=== PATIENT | male | born 1965 | race Caucasian/White ===

== ENCOUNTER 2018-11-09 13:43 | Emergency (ER) | payer MEDICAID, OTHER ==
[~2018-11-09] VITALS: Ht 167.6 cm; Wt 68.2 kg
[~2018-11-09 13:43] MED LIST: AMOX1TAB10 PO; BENA40TA56 PO; FAMO-96 PO; HYDR25TA6 PO; PRAV40TA76 PO
[2018-11-09 14:08] VITALS: Ht 167.6 cm; Wt 68.2 kg
--- NOTE | 2018-11-09 16:11 | ERD ---
ER Documentation Chief Complaint Chief Complaint AP X 5 DAYS HPI The patient is a 53-year-old male, presenting to the ER because of upper abdominal pain intermittently for the last 5 days, worse with eating, denies similar symptoms previously, denies fever, chills, neck pain, chest pain, vomiting, dizzy, diarrhea. He does not smoke, drink Past medical history: Hypertension, dyslipidemia Past surgical history: Bilateral inguinal herniorrhaphy ROS All systems reviewed and are negative except as per history of present illness. Medications Home Meds Active Scripts Pantoprazole* (Protonix*) 40 Mg Tablet.dr, 40 MG PO DAILY, #20 TAB Prov:DAJA YODER MD 11/09/18 Famotidine* (Pepcid*) 20 Mg Tablet, 20 MG PO BID, #20 TAB Prov:LELA JOHNSON [employer] 09/24/16 Amoxicillin/Potassium Clav (Amox-Clav 875-125 mg Tablet) 875-125 mg Tab, 1 TAB PO BID, #20 TAB Prov:LELA JOHNSON NP 09/24/16 Reported Medications Benazepril Hcl* (Benazepril Hcl*) 40 Mg Tablet, 40 MG PO QHS, #30 TAB 09/22/16 Hydrochlorothiazide* (Hydrochlorothiazide*) 25 Mg Tab, 25 MG PO DAILY, #30 TAB 09/22/16 Pravastatin Sodium* (Pravastatin Sodium*) 40 Mg Tablet, 40 MG PO HS, TAB 09/22/16 Allergies Allergies: Coded Allergies: No Known Allergy (Unverified , 09/21/16) PMhx/Soc History of Surgery: Yes (HERNIA REPAIR 2000) Anesthesia Reaction: No Hx Neurological Disorder: No Hx Respiratory Disorders: No Hx Cardiac Disorders: Yes (HTN, HIGH CHOLESTEROL) Hx Psychiatric Problems: No Hx Miscellaneous Medical Probl: No Hx Alcohol Use: No Hx Substance Use: No Hx Tobacco Use: No Physical Exam Vitals Vital Signs Date Temp Pulse Resp B/P (MAP) Pulse Ox O2 O2 Flow FiO2 Time Delivery Rate 11/09/18 98.8 72 19 121/93 97 Room Air 19:21 (102) 11/09/18 83 16 128/88 100 Room Air 18:57 (101) 11/09/18 98.3 84 17 164/104 100 Room Air 16:34 (124) 11/09/18 98.5 131 18 174/96 99 14:08 (122) Physical Exam Const: No acute distress. Head: Atraumatic. Eyes: Normal Conjunctiva. ENT: Normal External Ears, Nose and Mouth. Neck: Full range of motion. No meningismus. Resp: Clear to auscultation bilaterally. Cardio: Regular rate and rhythm. Abd: Soft, non distended, normal bowel sounds, mild epigastric/right upper quadrant tenderness, no rigidity/right lower quadrant/rebound/CVA tenderness Skin: No petechiae or rashes. Back: No midline or flank tenderness. Ext: No cyanosis, or edema. Neur: Awake and alert. No focal deficit Psych: Normal Mood and Affect. Result Diagram: 11/09/18 1620 11/09/18 1620 Results 24 hrs Laboratory Tests Test 11/09/18 16:20 11/09/18 16:34 White Blood Count 8.3 10^3/ul Red Blood Count 5.21 10^6/ul Hemoglobin 16.5 g/dl Hematocrit 46.1 % Mean Corpuscular Volume 88.5 fl Mean Corpuscular Hemoglobin 31.7 pg Mean Corpuscular Hemoglobin Concent 35.8 g/dl Red Cell Distribution Width 12.2 % Platelet Count 258 10^3/UL Mean Platelet Volume 9.2 fl Immature Granulocytes % 0.400 % Neutrophils % 66.2 % Lymphocytes % 23.9 % Monocytes % 6.1 % Eosinophils % 2.8 % Basophils % 0.6 % Nucleated Red Blood Cells % 0.0 /100WBC Immature Granulocytes # 0.030 10^3/ul Neutrophils # 5.5 10^3/ul Lymphocytes # 2.0 10^3/ul Monocytes # 0.5 10^3/ul Eosinophils # 0.2 10^3/ul Basophils # 0.1 10^3/ul Nucleated Red Blood Cells # 0.0 10^3/ul Sodium Level 136 mmol/L Potassium Level 4.3 mmol/L Chloride Level 99 mmol/L Carbon Dioxide Level 26 mmol/L Anion Gap 11 Blood Urea Nitrogen 18 mg/dl Creatinine 0.91 mg/dl Est Glomerular Filtrat Rate mL/min > 60 mL/min Glucose Level 116 mg/dl Calcium Level 10.3 mg/dl Total Bilirubin 0.8 mg/dl Direct Bilirubin 0.00 mg/dl Indirect Bilirubin 0.8 mg/dl Aspartate Amino Transf (AST/SGOT) 24 IU/L Alanine Aminotransferase (ALT/SGPT) 12 IU/L Alkaline Phosphatase 87 IU/L Total Protein 8.7 g/dl Albumin 5.1 g/dl Globulin 3.60 g/dl Albumin/Globulin Ratio 1.41 Lipase 58 U/L Bedside Urine pH (LAB) 6.0 Bedside Urine Protein (LAB) Negative Bedside Urine Glucose (UA) Negative Bedside Urine Ketones (LAB) Negative Bedside Urine Blood 1+ Bedside Urine Nitrite (LAB) Negative Bedside Urine Leukocyte Esterase (L Negative Current Medications Medications Dose Sig/Lydia Start Time Status Last (Trade) Ordered Route PRN Stop Time Admin Dose Reason Admin Ketorolac 30 mg ONCE STAT 11/09/18 DC 11/09/18 Tromethamine IV 17:31 17:40 (Toradol) 11/09/18 17:34 Morphine 2 mg ONCE STAT 11/09/18 DC 11/09/18 Sulfate IV 18:39 18:51 (morphine) 11/09/18 18:44 Ondansetron 4 mg ONCE STAT 11/09/18 DC 11/09/18 HCl (Zofran IV 18:39 18:50 Inj) 11/09/18 18:44 Procedures/[place] [id number] Radiology Main Line: [phone] DIAGNOSTIC IMAGING REPORT Patient: CHRISTIANO ERICKSON : 1965 Age: 53 Sex: M MR #: [id number] DOS: 11/09/18 1731 Ordering MD: DAJA YODER MD Location: E/R Room/Bed: PROCEDURE: US Abdomen (right upper quadrant). CLINICAL INDICATION: Abdominal pain. TECHNIQUE: Multiple real-time longitudinal and transverse images of the right upper quadrant of the abdomen were acquired utilizing a curved array transducer. Images were reviewed on a high-resolution PACS workstation. COMPARISON: CT abdomen pelvis from 09/21/2016. FINDINGS: The liver is normal in size and echotexture without focal mass or intrahepatic biliary dilatation. There is normal hepatopedal flow within the main portal vein. The gallbladder is well displayed without filling defects. The common bile duct measures 1.9 mm in maximal dimension. The visualized portions of the pancreas are unremarkable with obscuration of the tail of the pancreas. No free fluid is identified. The right kidney measures 10.5 cm in length. There is normal echogenicity within the right kidney. There is no perinephric fluid collection. No hydrone phrosis, mass, or calculus is seen. IMPRESSION: 1. Unremarkable right upper quadrant ultrasound. RPTAT: [facility] Physician Veronica Date Time Electronically viewed and signed by Darrick Recinos Physician on 11/09/2018 18:0 5 JH/ CC: DAJA YODER MD [id number] MEDICAL MAKING DECISION: The patient is a 53-year-old male, presenting with epigastric abdominal pain of unclear etiology, acute hematuria, was treated with Toradol 30 mg IV, morphine 2 mg IV for pain, Zofran formula IV for nausea with good response, stable for present follow-up The differential diagnoses considered include but are not limited to cholelithiasis, cholecystitis, choledocholithiasis, cholangitis, pancreatitis, hepatitis, gastritis, peptic ulcer disease, gastric ulcer, appendicitis, cystitis, diverticulitis, partial small bowel obstruction. Departure Diagnosis: Primary Impression: Abdominal pain Condition: Good Comments He was discharged with Protonix I discussed the findings with the patient. I advised the patient to follow-up with the primary physician in about 1-2 days for reevaluation and referral to gastroenterology and urology, sooner if needed and return if any concern. Disclaimer: Inadvertent spelling and grammatical errors are likely due to EHR/dictation software use and do not reflect on the overall quality of patient care. Also, please note that the electronic time recorded on this note does not necessarily reflect the actual time of the patient encounter. DAJA YODER MD Nov 09, 2018 16:11
[2018-11-09] MEDS ORDERED: KETOROLAC 30 MG INJ IV STA (17:31)
[2018-11-09] MEDS ORDERED: morphine 2 MG INJ IV STA (18:39)
[2018-11-09] MEDS ORDERED: ONDANSETRON 4 MG INJ IV STA (18:39)
[2018-11-09] MEDS ORDERED: PANT40TA3 PO (18:42)
[2018-11-09 19:21] VITALS: BP 121/93; PULSE 72; RESP 19
== END 2018-11-09 19:23 | disposition home or self-care (01) ==
LOC: E/R 13:43
DX: R10.10 Upper abdominal pain, unspecified (principal); R40.2252 Coma scale, best verbal response, oriented, at arrival to emergency department; R40.2362 Coma scale, best motor response, obeys commands, at arrival to emergency department; R40.2142 Coma scale, eyes open, spontaneous, at arrival to emergency department; I10 Essential (primary) hypertension
CPT/HCPCS: 76705; 80053; 81003; 83690; 85025; J1885; J2270; J2405; 36415; 96374; 96375